=== PATIENT | male | born 2000 | race American Indian/Alaskan Native ===

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

== ENCOUNTER 2020-03-11 15:01 | Emergency (ER) | payer MEDICAID ==
--- NOTE | 2020-03-11 15:42 | Event Note ---
ED Screening Note ED Screening Note: SI NO PLAN MH PMH FLAT AFFECT DEPRESSED MOOD This initial assessment/diagnostic orders/clinical plan/treatment(s) is/are subject to change based on patients health status, clinical progression and re- assessment by fellow clinical providers in the ED. Further treatment and workup at subsequent clinical providers discretion. Patient/guardian urged not to elope from the ED as their condition may be serious if not clinically assessed and managed. Initial orders include: 1013 MHE
[2020-03-11 16:15] LABS: Basophils # (Auto) 0.1 K/mm3 (0.0-0.1); Basophils % (Auto) 0.9 % (0.0-1.8); Eosinophils # (Auto) 0.1 K/mm3 (0.0-0.4); Eosinophils % (Auto) 1.6 % (0.0-4.3); Hematocrit 41.8 % (35.5-45.6); Hemoglobin 14.1 gm/dl (11.8-15.2); Lymphocytes # (Auto) 2.1 K/mm3 (1.2-5.4); Lymphocytes % (Auto) 27.7 % (13.4-35.0); Mean Corpuscular HGB Conc 34 % (32-34); Mean Corpuscular Volume 89 fl (84-94); Monocytes # (Auto) 0.7 K/mm3 (0.0-0.8); Monocytes % (Auto) 9.8 % (0.0-7.3); Platelet Count 144 K/mm3 (140-440); Red Blood Count 4.72 M/mm3 (3.65-5.03); Red Cell Distribution Width 14.1 % (13.2-15.2)
[2020-03-11 16:38] LABS: Alanine Aminotransferase 19 units/L (7-56); Albumin 4.3 g/dL (3.9-5); BUN/Creatinine Ratio 13; Blood Urea Nitrogen 14 mg/dL (9-20); Calcium 9.2 mg/dL (8.4-10.2); Hemolysis Index 10
--- NOTE | 2020-03-11 21:34 | Emergency Department Report ---
ED Psych HPI - General Chief Complaint: Psych Stated Complaint: SUICIDAL Time Seen by Provider: 03/11/20 15:42 Source: patient Mode of arrival: Ambulatory - History of Present Illness Initial Comments: Patient is 19 years old male with history of bipolar disorder and depression. Patient presented to the ER stating that he feels very depressed and he has been having suicidal thoughts. Patient denied any specific plan. Patient denied any homicidal ideation. No visual or auditory hallucination. Patient is calm however patient has a flat affect. MD Complaint: suicidal ideation, feels depressed - Related Data Previous Rx's Medication Instructions Recorded Last Taken Type Sulfamethoxazole/Trimethoprim 1 each PO BID 10 Days #20 tablet 06/13/19 Unknown Rx [Bactrim DS TAB] Allergies Allergy/AdvReac Type Severity Reaction Status Date / Time No Known Allergies Allergy Verified 07/12/19 11:23 ED Review of Systems ROS: Stated complaint: SUICIDAL Other details as noted in HPI Comment: All other systems reviewed and negative Constitutional: denies: chills, fever Cardiovascular: denies: chest pain, palpitations Gastrointestinal: denies: abdominal pain, nausea, vomiting Genitourinary: denies: urgency Musculoskeletal: denies: back pain Neurological: denies: headache, weakness, numbness, paresthesias, confusion ED Past Medical Hx - Past Medical History Previous Medical History?: Yes Hx Psychiatric Treatment: Yes (depression BIPOLAR) Hx Asthma: Yes - Surgical History Past Surgical History?: Yes Additional Surgical History: tonsilectomy - Social History Smoking Status: Current Every Day Smoker Substance Use Type: None - Medications Home Medications: Home Medications Medication Instructions Recorded Confirmed Last Taken Type Sulfamethoxazole/Trimethoprim 1 each PO BID 10 Days #20 tablet 06/13/19 Unknown Rx [Bactrim DS TAB] ED Physical Exam - General Limitations: No Limitations General appearance: alert, in no apparent distress - Head Head exam: Present: atraumatic, normocephalic, normal inspection - Eye Eye exam: Present: normal appearance, PERRL - ENT ENT exam: Present: normal exam, normal orophraynx, mucous membranes moist - Neck Neck exam: Present: normal inspection, full ROM. Absent: tenderness, meningismus - Respiratory Respiratory exam: Present: normal lung sounds bilaterally - Cardiovascular Cardiovascular Exam: Present: regular rate, normal rhythm, normal heart sounds - GI/Abdominal GI/Abdominal exam: Present: soft, normal bowel sounds. Absent: distended, tenderness, guarding, rebound, rigid, organomegaly, bruit, pulsatile mass, hernia - Extremities Exam Extremities exam: Present: normal inspection, full ROM, normal capillary refill. Absent: pedal edema, calf tenderness - Back Exam Back exam: Absent: CVA tenderness (R), CVA tenderness (L) - Neurological Exam Neurological exam: Present: alert, oriented X3, CN II-XII intact - Psychiatric Psychiatric exam: Present: flat affect, suicidal ideation. Absent: homicidal ideation - Skin Skin exam: Present: warm, intact, normal color ED Course Vital Signs 03/11/20 03/11/20 03/12/20 15:41 22:58 09:02 Temperature 97.8 F 98.3 F 97.5 F L Pulse Rate 84 71 79 Respiratory 20 18 18 Rate Blood Pressure 116/76 130/74 Blood Pressure 111/71 [Right] O2 Sat by Pulse 97 95 98 Oximetry ED Medical Decision Making - Lab Data Result diagrams: 03/11/20 15:57 03/11/20 15:57 - Medical Decision Making Patient is 19 years old male with history of bipolar disorder and depression. Patient presented to the ER stating that he feels very depressed and he has been having suicidal thoughts. Patient denied any specific plan. Patient denied any homicidal ideation. No visual or auditory hallucination. Patient is calm however patient has a flat affect. Labs reviewed and is unremarkable. Patient is medically cleared to be evaluated by our psychiatric team. Critical care attestation.: If time is entered above; I have spent that time in minutes in the direct care of this critically ill patient, excluding procedure time. ED Disposition Clinical Impression: Suicidal ideation Disposition: DC/TX-65 PSY HOSP/PSY UNIT Is pt being admited?: No Condition: Stable Referrals: PRIMARY CARE, [Primary Care Provider] - 3-5 Days
--- NOTE | 2020-03-12 08:53 | Consultation ---
History of Present Illness - Reason for Consult Consult date: 03/12/20 Reason for consult: MHE Requesting physician: BILLIE ALEXANDER - History of Present Psychiatric Illness ED Provider: Patient is 19 years old male with history of bipolar disorder and depression. Patient presented to the ER stating that he feels very depressed and he has been having suicidal thoughts. Patient denied any specific plan. Patient denied any homicidal ideation. No visual or auditory hallucination. Patient is calm however patient has a flat affect. PSYCH HPI Patient is a 19-year-old, single, employed -[employer] male currently resides with self past psychiatric history of anxiety and depression and no other significant past medical history who presented to the ED with chief comp laint of suicidal ideation. Patient reportedly recently lost her younger sibling about 2 weeks ago due to car accident, states she was very close to her and this has been bothering him so much and kept in the depressive mood and just feels like he needed help because he does not really have anything to live for anymore. Patient reported does not have any other contributing factor to his depressive mood, reports being first diagnosed with depression at age of 14 but does not remember the circumstances around that time in the current moment. PAST PSYCHIATRIC HISTORY Diagnoses: Depression anxiety Suicide attempts or Self-harm behavior: Yes Prior psychiatric hospitalizations: Yes Substance Abuse history: None reported Previous psychiatric medications tried: Lexapro Outpatient treatment: Used to but not at the moment PAST MEDICAL HISTORY: None reported Family Psychiatric History: None reported or documented SOCIAL HISTORY Marital Status: Single Living Arrangements: With self Employment Status: Employed Access to guns/weapons: None reported Education: High school History of Abuse: None reported Legal History: None reported REVIEW OF SYSTEMS Constitutional: Negative for weight loss ENT: Negative for stridor Respiratory: Negative for cough or hemoptysis All other systems reviewed and are negative MENTAL STATUS EXAMINATION General Appearance and Behavior: Age appropriate, good hygiene, wearing appropriate clothes,, good eye contact Cooperation: Participating/engaged, but Guarded Psychomotor Behavior: Psychomotor normal Mood: depressed Affect and affective range: irritable, labile Thought Process: illogical Thought Content: hopelessness, helplessness Speech: Normal rate, volume and rythm Intellectual Functioning: Average Suicidal Ideation: SI Homicidal Ideation: Denies HI Impulse Control: Impaired Insight and Judgment: Limited insight and judgment Memory: Normal Attention: Normal Orientation: Alert, oriented Diagnoses: Assessment and Plan - Psychiatric problem (1) MDD (major depressive disorder), recurrent episode Current Visit: Yes Status: Acute Qualifiers: Major depression episode severity: moderate Qualified Code(s): F33.1 - Major depressive disorder, recurrent, moderate F33.9 Treatment Plan MEDICATIONS: Risks, benefits and alternatives of medications discussed with the patient, questions answered and consent obtained from patient. PSYCHOTHERAPY: Supportive psychotherapy provided MEDICAL: Per primary team DELIRIUM PRECAUTIONS: Please re-orient patient frequently, keep lights on during the day, and minimize benzodiazepines and opiates as these medications could worsen patient's confusion. 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 Case discussed with Dr. Aguero who agrees with current disposition LEGAL STATUS: 1013 FOLLOW-UP: Will follow Thank you for the consult. Please contact with any questions and/or concerns. Medications and Allergies Allergies Allergy/AdvReac Type Severity Reaction Status Date / Time No Known Allergies Allergy Verified 07/12/19 11:23 Home Medications Medication Instructions Recorded Confirmed Last Taken Type Sulfamethoxazole/Trimethoprim 1 each PO BID 10 Days #20 tablet 06/13/19 Unknown Rx [Bactrim DS TAB] Mental Status Exam - Vital signs Last Vital Signs Temp 98.3 F 03/11/20 22:58 Pulse 71 03/11/20 22:58 Resp 18 03/11/20 22:58 BP 130/74 03/11/20 22:58 Pulse Ox 95 03/11/20 22:58 Results Result Diagrams: 03/11/20 15:57 03/11/20 15:57 Abnormal lab results 03/11/20 03/11/20 03/11/20 Range/Units 15:57 15:57 15:57 [place] % (Auto) 9.8 H (0.0-7.3) % Salicylates < 0.3 L (2.8-20.0) mg/dL Acetaminophen 5.0 L (10.0-30.0) ug/mL All other labs normal. Assessment and Plan - Psychiatric problem (1) MDD (major depressive disorder), recurrent episode Current Visit: Yes Status: Acute Qualifiers: Major depression episode severity: moderate Qualified Code(s): F33.1 - Major depressive disorder, recurrent, moderate
[2020-03-12 09:04] VITALS: BP 111/71
[2020-03-12 11:18] LABS: Bilirubin,Urine NEG (Negative); Blood,Urine NEG (Negative); Color,Urine Yellow (Yellow); Mucus,Urine 1+ /HPF; Protein,Urine <15 mg/dL mg/dL (Negative)
[2020-03-12 11:27] LABS: Amphetamine Screen,Urine Negative; Benzodiazepines Screen,Urine Negative; Cannabinoid Screen,Urine Negative; Cocaine Screen,Urine Negative; Methadone Screen,Urine Negative; Opiate Screen,Urine Negative
== END 2020-03-12 15:48 ==
LOC: ED 15:01
DX: F31.9 Bipolar disorder, unspecified (principal); F17.200 Nicotine dependence, unspecified, uncomplicated; Z79.899 Other long term (current) drug therapy; Z98.890 Other specified postprocedural states; Z20.822 Contact with and (suspected) exposure to COVID-19
CPT/HCPCS: 36415; 80053; 80307; 81001; 85025; 99285; U0003; 80320; G0480

== ENCOUNTER 2020-04-01 20:12 | Emergency (ER) | payer MEDICAID ==
--- NOTE | 2020-04-01 20:55 | Emergency Department Report ---
ED General Adult HPI - General Chief complaint: Extremity Injury, Lower Stated complaint: PELVIC/CHEST/KNEE PAIN Time Seen by Provider: 04/01/20 20:49 Source: patient Mode of arrival: Ambulatory Limitations: No Limitations - History of Present Illness Initial comments: pt is a 19 y/o aam who presents for dysuira x 1 1/2 weeks, states frequency urgency and pelvic spams, pt denies fever or chills , no n/v no back pain, no hx or renal stone, denies posibility for STI, Last contact 1 month ago. pt denies fall injury or fall. symptoms are exacerbated by voiding, symptoms are relieved by nothing tried. There is no penile discharge, lesion. or open sore. - Related Data Previous Rx's Medication Instructions Recorded Last Taken Type Sulfamethoxazole/Trimethoprim 1 each PO BID 10 Days #20 tablet 06/13/19 Unknown Rx [Bactrim DS TAB] Doxycycline Monohydrate 100 mg PO BID 10 Days #20 tablet 04/02/20 Unknown Rx Allergies Allergy/AdvReac Type Severity Reaction Status Date / Time No Known Allergies Allergy Verified 07/12/19 11:23 ED Review of Systems ROS: Stated complaint: PELVIC/CHEST/KNEE PAIN Other details as noted in HPI Constitutional: denies: chills, fever Eyes: denies: eye pain, eye discharge, vision change ENT: denies: ear pain, throat pain Respiratory: denies: cough, shortness of breath, wheezing Cardiovascular: denies: chest pain, palpitations Endocrine: no symptoms reported Gastrointestinal: denies: abdominal pain, nausea, diarrhea Genitourinary: urgency, dysuria, frequency. denies: hematuria, discharge, testicular pain, testicular mass Musculoskeletal: denies: back pain, joint swelling, arthralgia Skin: denies: rash, lesions Neurological: denies: headache, weakness, paresthesias Psychiatric: as per HPI Hematological/Lymphatic: denies: easy bleeding, easy bruising ED Past Medical Hx - Past Medical History Previous Medical History?: Yes Hx Psychiatric Treatment: Yes (depression BIPOLAR) Hx Asthma: Yes - Surgical History Past Surgical History?: Yes Additional Surgical History: tonsilectomy - Social History Smoking Status: Never Smoker Substance Use Type: None - Medications Home Medications: Home Medications Medication Instructions Recorded Confirmed Last Taken Type Sulfamethoxazole/Trimethoprim 1 each PO BID 10 Days #20 tablet 06/13/19 Unknown Rx [Bactrim DS TAB] Doxycycline Monohydrate 100 mg PO BID 10 Days #20 tablet 04/02/20 Unknown Rx ED Physical Exam - General Limitations: No Limitations General appearance: alert, in no apparent distress - Head Head exam: Present: atraumatic, normocephalic - Eye Eye exam: Present: normal appearance - ENT ENT exam: Present: mucous membranes moist - Neck Neck exam: Present: normal inspection, full ROM - Respiratory Respiratory exam: Present: normal lung sounds bilaterally. Absent: respiratory distress, wheezes, stridor - Cardiovascular Cardiovascular Exam: Present: regular rate, normal rhythm, normal heart sounds. Absent: systolic murmur, diastolic murmur, rubs, gallop - GI/Abdominal GI/Abdominal exam: Present: soft, normal bowel sounds. Absent: distended, tenderness, guarding, rebound, rigid, bruit, hernia - Rectal Rectal exam: Present: deferred - Extremities Exam Extremities exam: Present: normal inspection, full ROM. Absent: tenderness - Back Exam Back exam: Present: normal inspection, full ROM. Absent: tenderness, CVA tenderness (R), CVA tenderness (L) - Neurological Exam Neurological exam: Present: alert, oriented X3, CN II-XII intact, normal gait - Psychiatric Psychiatric exam: Present: normal affect, normal mood - Skin Skin exam: Present: warm, dry, intact, normal color. Absent: rash ED Course Vital Signs 04/01/20 20:21 Temperature 99.4 F Pulse Rate 92 H Respiratory 18 Rate Blood Pressure 147/91 O2 Sat by Pulse 99 Oximetry ED Medical Decision Making - Lab Data Labs 04/02/20 00:20 Urine Color Yellow Urine Turbidity Slightly-cloudy Urine pH 5.0 Ur Specific [place] 1.032 H Urine Protein 100 mg/dl Urine Glucose (UA) Neg Urine Ketones Neg Urine Blood Neg Urine Nitrite Neg Urine Bilirubin Neg Urine Urobilinogen < 2.0 Ur Leukocyte Esterase Neg Urine WBC (Auto) 5.0 Urine RBC (Auto) 13.0 Urine Bacteria (Auto) 1+ Calcium Oxalate Crystal 2+ Urine Mucus 3+ - Medical Decision Making UA is positive for leukocytes WBCs bacteria plan Rocephin IM, azithromycin p.o. DC'd home prescription for doxycycline p.o. twice daily x10 days patient will fo llow with primary care doctor in 2 to 3 days/health department for further STI screening. Patient verbalizes agreement and understanding with discharge plan. Patient DC'd home stable condition at this time. Critical care attestation.: If time is entered above; I have spent that time in minutes in the direct care of this critically ill patient, excluding procedure time. ED Disposition Clinical Impression: Dysuria, Urethritis Disposition: DC-01 TO HOME OR SELFCARE Is pt being admited?: No Does the pt Need Aspirin: No Condition: Stable Instructions: Dysuria, Urethritis, Adult Prescriptions: Doxycycline Monohydrate 100 mg PO BID 10 Days #20 tablet Forms: STI Treatment and Prevention Time of Disposition: 01:41
[2020-04-02 01:16] LABS: Bacteria,Urine 1+ /HPF (Negative); Bilirubin,Urine NEG (Negative); Blood,Urine NEG (Negative); Calcium Oxalate Crystals,Urine 2+; Color,Urine Yellow (Yellow); Mucus,Urine 3+ /HPF; Urobilinogen,Urine < 2.0 mg/dL (<2.0)
[2020-04-02] MEDS ORDERED: AZITHROMYCIN 1 GM ORAL PWDR PACKET PO ONE (01:38)
[2020-04-02] MEDS ORDERED: LIDOCAINE-MPF (1%) 10 MG/1 ML VIAL 5 ML INFILTRATI ONE (01:38)
[2020-04-02 02:10] VITALS: BP 142/86
== END 2020-04-02 02:09 | disposition home or self-care (01) ==
LOC: ED 20:12
DX: N34.2 Other urethritis (principal); R30.0 Dysuria; F31.9 Bipolar disorder, unspecified; J45.909 Unspecified asthma, uncomplicated; Z90.89 Acquired absence of other organs; Z79.899 Other long term (current) drug therapy
CPT/HCPCS: 81001; 96372; 99283; J0696

== ENCOUNTER 2020-05-19 23:52 | Emergency (ER) | payer MEDICAID ==
[2020-05-20 02:17] VITALS: BP 125/66
[2020-05-20 02:50] LABS: Basophils # (Auto) 0.1 K/mm3 (0.0-0.1); Basophils % (Auto) 0.6 % (0.0-1.8); Eosinophils # (Auto) 0.2 K/mm3 (0.0-0.4); Eosinophils % (Auto) 2.3 % (0.0-4.3); Hematocrit 40.9 % (35.5-45.6); Hemoglobin 13.6 gm/dl (11.8-15.2); Lymphocytes % (Auto) 34.7 % (13.4-35.0); Mean Corpuscular HGB Conc 33 % (32-34); Mean Corpuscular Volume 89 fl (84-94); Monocytes # (Auto) 0.5 K/mm3 (0.0-0.8); Monocytes % (Auto) 6.1 % (0.0-7.3); Platelet Count 134 K/mm3 (140-440); Red Cell Distribution Width 14.4 % (13.2-15.2)
--- NOTE | 2020-05-20 02:56 | Emergency Department Report ---
HPI - General Chief Complaint: Psych Time Seen by Provider: 05/20/20 02:49 - HPI HPI: This is a 20-year-old -[place] male presents to the emergency department for a metabolic evaluation. The patient has the complaint of depression and suicidal ideations with a plan to overdose. The patient says he is just "tired of living this way." He has a past medical history of major depressive disorder, bipolar disorder and anxiety. He says he is taking medication and has been compliant. He is a tobacco smoker. He denies any illicit drug use or al cohol abuse. Patient denies any current auditory or visual hallucinations or any homicidal ideations. ED Past Medical Hx - Past Medical History Previous Medical History?: Yes Hx Psychiatric Treatment: Yes (depression BIPOLAR) Hx Asthma: Yes - Surgical History Past Surgical History?: Yes Additional Surgical History: tonsilectomy - Social History Smoking Status: Current Every Day Smoker - Medications Home Medications: Home Medications Medication Instructions Recorded Confirmed Last Taken Type Lurasidone [Latuda] 40 mg PO QDAY 05/20/20 05/20/20 Unknown History ZyPREXA 05/20/20 Unknown History traZODone [Desyrel] 50 mg PO QHS 05/20/20 05/20/20 Unknown History ED Review of Systems ROS: Stated complaint: MENTAL HEALTH Other details as noted in HPI Comment: All other systems reviewed and negative Constitutional: denies: chills, fever Eyes: denies: eye pain, vision change ENT: denies: ear pain, throat pain Respiratory: denies: cough, shortness of breath Cardiovascular: denies: chest pain, palpitations Gastrointestinal: denies: abdominal pain, vomiting Genitourinary: denies: dysuria, discharge Musculoskeletal: denies: back pain, arthralgia Neurological: denies: headache, weakness Psychiatric: suicidal thoughts. denies: homicidal thoughts Physical Exam - Physical Exam Vital Signs: Vital Signs 05/20/20 02:12 Temperature 98.0 F Pulse Rate 62 Respiratory 20 Rate Blood Pressure 125/66 O2 Sat by Pulse 96 Oximetry Physical Exam: GENERAL: The patient is well-developed well-nourished. HENT: Normocephalic. Atraumatic. Patient has moist mucous membranes. EYES: Extraocular motions are intact. NECK: Supple. Trachea is midline. CHEST/LUNGS: Clear to auscultation. There is no respiratory distress noted. HEART/CARDIOVASCULAR: Regular. There is no tachycardia. There is no murmur. ABDOMEN: Abdomen is soft, nontender. Patient has normal bowel sounds. SKIN: Skin is warm and dry. NEURO: The patient is awake, alert, and oriented. The patient is cooperative. Normal speech. MUSCULOSKELETAL: There is no tenderness or deformity. There is no limitation range of motion. PSYCH: Patient has a flat affect. ED Course Vital Signs 05/20/20 02:12 Temperature 98.0 F Pulse Rate 62 Respiratory 20 Rate Blood Pressure 125/66 O2 Sat by Pulse 96 Oximetry ED Medical Decision Making - Lab Data Result diagrams: 05/20/20 02:24 05/20/20 02:24 Lab Results 05/20/20 05/20/20 05/20/20 Range/Units 02:24 02:24 02:24 WBC (4.5-11.0) K/mm3 RBC (3.65-5.03) M/mm3 Hgb (11.8-15.2) gm/dl Hct (35.5-45.6) % MCV (84-94) fl MCH (28-32) pg MCHC (32-34) % RDW (13.2-15.2) % Plt Count (140-440) K/mm3 Lymph % (Auto) (13.4-35.0) % [place] % (Auto) (0.0-7.3) % Eos % (Auto) (0.0-4.3) % Baso % (Auto) (0.0-1.8) % Lymph # (Auto) (1.2-5.4) K/mm3 [place] # (Auto) (0.0-0.8) K/mm3 Eos # (Auto) (0.0-0.4) K/mm3 Baso # (Auto) (0.0-0.1) K/mm3 Seg Neutrophils % (40.0-70.0) % Seg Neutrophils # (1.8-7.7) K/mm3 Sodium 140 (137-145) mmol/L Potassium 4.3 (3.6-5.0) mmol/L Chloride 104.0 (98-107) mmol/L Carbon Dioxide 26 (22-30) mmol/L Anion Gap 14 mmol/L BUN 10 (9-20) mg/dL Creatinine 1.1 (0.8-1.3) mg/dL Estimated GFR > 60 ml/min BUN/Creatinine Ratio 9 % Glucose 92 (75-100) mg/dL Calcium 8.9 (8.4-10.2) mg/dL Salicylates < 0.3 L (2.8-20.0) mg/dL Acetaminophen 5.0 L (10.0-30.0) ug/mL Plasma/Serum Alcohol (0-0.07) % 05/20/20 05/20/20 Range/Units 02:24 02:24 WBC 8.5 (4.5-11.0) K/mm3 RBC 4.60 (3.65-5.03) M/mm3 Hgb 13.6 (11.8-15.2) gm/dl Hct 40.9 (35.5-45.6) % MCV 89 (84-94) fl MCH 30 (28-32) pg MCHC 33 (32-34) % RDW 14.4 (13.2-15.2) % Plt Count 134 L (140-440) K/mm3 Lymph % (Auto) 34.7 (13.4-35.0) % [place] % (Auto) 6.1 (0.0-7.3) % Eos % (Auto) 2.3 (0.0-4.3) % Baso % (Auto) 0.6 (0.0-1.8) % Lymph # (Auto) 3.0 (1.2-5.4) K/mm3 [place] # (Auto) 0.5 (0.0-0.8) K/mm3 Eos # (Auto) 0.2 (0.0-0.4) K/mm3 Baso # (Auto) 0.1 (0.0-0.1) K/mm3 Seg Neutrophils % 56.3 (40.0-70.0) % Seg Neutrophils # 4.8 (1.8-7.7) K/mm3 Sodium (137-145) mmol/L Potassium (3.6-5.0) mmol/L Chloride (98-107) mmol/L Carbon Dioxide (22-30) mmol/L Anion Gap mmol/L BUN (9-20) mg/dL Creatinine (0.8-1.3) mg/dL Estimated GFR ml/min BUN/Creatinine Ratio % Glucose (75-100) mg/dL Calcium (8.4-10.2) mg/dL Salicylates (2.8-20.0) mg/dL Acetaminophen (10.0-30.0) ug/mL Plasma/Serum Alcohol < 0.01 (0-0.07) % - Medical Decision Making This patient presents to the emergency department with a complaint of depression and suicidal ideations, with a plan to overdose on medication in order to harm himself. For this reason the patient has been made a 1013 and an ED hold. His labs have thus far been unremarkable including CBC, metabolic panel, blood alcohol level, and Tylenol/salicylate levels. We are waiting for a urine sample to do a urinalysis and UDS. However the patient does not appear acutely intoxicated. If he ends up having a UTI, antibiotics will be added. His vital signs have been reassuring throughout his ED course thus far. The patient will be seen by the psychiatric assessment team in the morning. I consider this patient to be medically cleared for psychiatric placement. Critical Care Time: No Critical care attestation.: If time is entered above; I have spent that time in minutes in the direct care of this critically ill patient, excluding procedure time. ED Disposition Clinical Impression: Suicidal ideations MDD (major depressive disorder), recurrent episode Qualifiers: Major depression episode severity: unspecified Qualified Code(s): F33.9 - Major depressive disorder, recurrent, unspecified Disposition: [id number]/TX-65 PSY HOSP/PSY UNIT Is pt being admited?: No Condition: Stable Time of Disposition: 04:09
[2020-05-20 03:08] LABS: BUN/Creatinine Ratio 9; Blood Urea Nitrogen 10 mg/dL (9-20); Calcium 8.9 mg/dL (8.4-10.2); Hemolysis Index 9
--- NOTE | 2020-05-20 09:23 | Consultation ---
History of Present Illness - Reason for Consult Consult date: 05/20/20 Reason for consult: MHE Requesting physician: HERB RIVERO - History of Present Psychiatric Illness Per ED Provider:This is a 20-year-old -[place] male presents to the emergency department for a metabolic evaluation. The patient has the complaint of depression and suicidal ideations with a plan to overdose. The patient says he is just "tired of living this way." He has a past medical history of major depressive disorder, bipolar disorder and anxiety. He says he is taking medication and has been compliant. He is a tobacco smoker. He denies any illicit drug use or alcohol abuse. Patient denies any current auditory or visual hallucinations or any homicidal ideations. PSYCH HPI Patient is a 20-year-old, single, employed -[place] male who currently resides with family with past psychiatric history of anxiety and depression and no other significant past medical history who presented to the ED with chief complaint of suicidal ideation. Patient reported that he is just tired of life, states everything mostly is working against him mostly his family members were the ones that have been issues with him. Patient states that the family is treating him differently just because of his mental health issues. Patient states he had a recent argument with family over them deciding which college that he supposed to go to and he felt like his freedom was taken away because they are not letting him choose or make his own decisions. Patient states that he does not want to be treated like that is why he has been depressed or suicidal because there is no point living that way if he can make his own decisions. Patient endorses suicidal ideation at this moment and endorses that he still depressed and sad PAST PSYCHIATRIC HISTORY Diagnoses: Depression anxiety Suicide attempts or Self-harm behavior: Yes Prior psychiatric hospitalizations: Yes Substance Abuse history: None reported Previous psychiatric medications tried: Lexapro Outpatient treatment: Used to but not at the moment PAST MEDICAL HISTORY: None reported Family Psychiatric History: None reported or documented SOCIAL HISTORY Marital Status: Single Living Arrangements: With family Employment Status: Employed Access to guns/weapons: None reported Education: High school History of Abuse: None reported Legal History: None reported REVIEW OF SYSTEMS Constitutional: Negative for weight loss ENT: Negative for stridor Respiratory: Negative for cough or hemoptysis All other systems reviewed and are negative MENTAL STATUS EXAMINATION General Appearance and Behavior: Age appropriate, good hygiene, wearing appropriate clothes,, good eye contact Cooperation: Participating/engaged, but Guarded Psychomotor Behavior: Psychomotor normal Mood: depressed Affect and affective range: irritable, labile Thought Process: illogical Thought Content: hopelessness, helplessness Speech: Normal rate, volume and rythm Intellectual Functioning: Average Suicidal Ideation: SI Homicidal Ideation: Denies HI Impulse Control: Impaired Insight and Judgment: Limited insight and judgment Memory: Normal Attention: Normal Orientation: Alert, oriented Diagnoses: Assessment and Plan - Psychiatric problem (1) MDD (major depressive disorder), recurrent episode Current Visit: Yes Status: Acute Qualifiers: Major depression episode severity: moderate Qualified Code(s): F33.1 - Major depressive disorder, recurrent, moderate F33.9 Treatment Plan MEDICATIONS: Risks, benefits and alternatives of medications discussed with the patient, questions answered and consent obtained from patient. PSYCHOTHERAPY: Supportive psychotherapy provided MEDICAL: Per primary team DELIRIUM PRECAUTIONS: Please re-orient patient frequently, keep lights on during the day, and minimize benzodiazepines and opiates as these medications could worsen patient's confusion. 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 Case discussed with Dr. Aguero who agrees with current disposition LEGAL STATUS: 1013 FOLLOW-UP: Will follow Thank you for the consult. Please contact with any questions and/or concerns. Medications and Allergies Allergies Allergy/AdvReac Type Severity Reaction Status Date / Time cranberries Allergy Anaphylaxis Uncoded 05/20/20 02:09 Home Medications Medication Instructions Recorded Confirmed Last Taken Type Lurasidone [Latuda] 40 mg PO QDAY 05/20/20 05/20/20 Unknown History ZyPREXA 05/20/20 Unknown History traZODone [Desyrel] 50 mg PO QHS 05/20/20 05/20/20 Unknown History Mental Status Exam - Vital signs Last Vital Signs Temp 98.0 F 05/20/20 02:12 Pulse 62 05/20/20 02:12 Resp 20 05/20/20 02:12 BP 125/66 05/20/20 02:12 Pulse Ox 96 05/20/20 02:12 Results Result Diagrams: 05/20/20 02:24 05/20/20 02:24 Abnormal lab results 05/20/20 05/20/20 05/20/20 Range/Units 02:24 02:24 02:24 Plt Count 134 L (140-440) K/mm3 Salicylates < 0.3 L (2.8-20.0) mg/dL Acetaminophen 5.0 L (10.0-30.0) ug/mL All other labs normal.
[2020-05-20 16:16] LABS: Bilirubin,Urine NEG (Negative); Blood,Urine NEG (Negative); Color,Urine Yellow (Yellow); Mucus,Urine FEW /HPF; Urobilinogen,Urine < 2.0 mg/dL (<2.0); WBC,Urine < 1.0 /HPF (0.0-6.0)
[2020-05-20 16:22] LABS: Amphetamine Screen,Urine PRESUMPTIVE NEGATIVE; Benzodiazepines Screen,Urine PRESUMPTIVE NEGATIVE; Cannabinoid Screen,Urine PRESUMPTIVE NEGATIVE; Cocaine Screen,Urine PRESUMPTIVE NEGATIVE; Methadone Screen,Urine PRESUMPTIVE NEGATIVE; Opiate Screen,Urine PRESUMPTIVE NEGATIVE
[2020-05-20] MEDS ORDERED: traZODone 50 MG TAB PO SCH (22:00)
== END 2020-05-20 19:29 ==
LOC: EEVIPCON 23:52 → ED 23:52
DX: R45.851 Suicidal ideations (principal); Z20.822 Contact with and (suspected) exposure to COVID-19; F33.9 Major depressive disorder, recurrent, unspecified; J45.909 Unspecified asthma, uncomplicated; F17.200 Nicotine dependence, unspecified, uncomplicated; Z90.89 Acquired absence of other organs; Z79.899 Other long term (current) drug therapy; Z88.8 Allergy status to other drugs, medicaments and biological substances
CPT/HCPCS: 36415; 80048; 80307; 81001; 85025; 99285; U0003; 80320; G0480